=== PATIENT | male | born 1995 | race Caucasian/White ===

== ENCOUNTER 2020-03-18 15:31 | Emergency (ER) | payer OTHER ==
[2020-03-18] MEDS ORDERED: BENZONATATE 100 MG CAPSULE PO ONE ×2 (16:32→19:45)
--- NOTE | 2020-03-18 16:34 | ER Document Report ---
ED Medical Screen (RME) - General Chief Complaint: Flu Symptoms Stated Complaint: CEST PAIN Time Seen by Provider: 03/18/20 16:26 Notes: Patient is a 24-year-old male who presents emergency department with a chief complaint of chest pain that started about 2 to 3 hours ago. Patient also has had some nausea, vomiting, and abdominal pain. Patient states that he has had a cough and every time he coughs, the chest pain is exacerbated. Patient vapes. Exam: Coarse lung sounds in bilateral lower lobes. I have greeted and performed a rapid initial assessment of this patient. A comprehensive ED assessment and evaluation of the patient, analysis of test results and completion of medical decision making process will be conducted by an additional ED providers. - Related Data Home Medications: lisinopril 25mg Physical Exam - Vital signs Vitals: Temp Pulse Resp BP Pulse Ox 99.5 F 105 H 20 157/92 H 99 03/18/20 15:54 03/18/20 15:54 03/18/20 15:54 03/18/20 15:54 03/18/20 15:54 Course - Vital Signs Vital signs: Temp Pulse Resp BP Pulse Ox 99.5 F 105 H 20 157/92 H 99 03/18/20 15:54 03/18/20 15:54 03/18/20 15:54 03/18/20 15:54 03/18/20 15:54
--- NOTE | 2020-03-18 17:00 | RADIOLOGY REPORT (SQ) ---
EXAM DESCRIPTION: CHEST SINGLE VIEW IMAGES COMPLETED DATE/TIME: 03/18/2020 4:49 pm REASON FOR STUDY: cough; chest pain COMPARISON: None. EXAM PARAMETERS: NUMBER OF VIEWS: One view. TECHNIQUE: An AP view of the chest was obtained. RADIATION DOSE: NA LIMITATIONS: None. FINDINGS: LUNGS AND PLEURA: Patchy bilateral basilar predominant parenchymal opacities. There is no sizable pleural effusion or pneumothorax. MEDIASTINUM AND HILAR STRUCTURES: No mediastinal or hilar contour abnormality. HEART AND VASCULAR STRUCTURES: The cardiac silhouette and pulmonary vasculature are within normal west its. BONES: No acute findings. HARDWARE: None in the chest. OTHER: No other finding. IMPRESSION: Patchy bilateral basilar predominant parenchymal opacities. Clinical correlation to exc lude a pneumonia is recommended. TECHNICAL DOCUMENTATION: JOB ID: [id number] [employer]- All Rights Reserved Reading location - IP/workstation name: [email or web address]
--- NOTE | 2020-03-18 19:12 | EKG REPORT ---
SEVERITY:- BORDERLINE ECG - SINUS RHYTHM PROBABLE LEFT ATRIAL ABNORMALITY : Confirmed by: Na Awan MD 18-Mar-2020 19:12:03
--- NOTE | 2020-03-18 19:39 | ER Document Report ---
ED Flu Like - General Chief Complaint: Flu Symptoms Stated Complaint: CEST PAIN Time Seen by Provider: 03/18/20 16:26 Primary Care Provider: KEANU,MARIBEL [Primary Care Provider] - Follow up as needed Mode of Arrival: Ambulatory Information source: Patient Notes: 03/18/20 16:26 - ED Nursing Note by JULI MEJIA Acct Num: [id number] : 1995 Patient Age: 24 Patient presents to the ED from home with complaint of chest pain, difficulty breathing, fever, chills, night sweats, nausea, and vomiting and cough. Patient states his symptoms started Wednesday evening. Patient states his highest measured temperature was 99.8. Patient states he had been taking tylenol and his last dose was at noon today. Patient is alert and orientedx4, speaking in clear and complete sentences, respirations are even and unlabored, NAD noted at this time. ED Medical Screen (Place Notes) - General Chief Complaint: Flu Symptoms Stated Complaint: CEST PAIN Time Seen by Provider: 03/18/20 16:26 Notes: Patient is a 24-year-old male who presents emergency department with a chief complaint of chest pain that started about 2 to 3 hours ago. Patient also has had some nausea, vomiting, and abdominal pain. Patient states that he has had a cough and every time he coughs, the chest pain is exacerbated. Patient vapes. Exam: Coarse lung sounds in bilateral lower lobes. MY NOTES 24-year-old male arrives by POV after having upper respiratory tract symptoms since early Wednesday over 3 days ago. Wednesday and Wednesday he experienced myalgias and fever and chills and nonproductive cough. Patient is positive for hypertension taking lisinopril JAC inhibitor as well as testosterone replacement 4 mg in each thigh monthly. He takes this for low testosterone levels. He also takes Effexor and oxycodone 10 mg 5 times a day for myalgias. He was discharged from the in 2018 because he got surgery for his gynecomastia which became abscessed and became complication because of nerve involvement of his right upper extremities. 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 He also gets keloids over his body including the surgeries to his breasts chest. Patient does not know where he got his URI symptoms from. 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 - HPI Onset: Other - x 3 days Timing/Duration: Sudden, Worse Quality of pain: Achy Severity: Severe Pain Level: 4 CO exposure: No Associated symptoms: Body/muscle aches, Productive cough, Fever, Hurts to breath Similar symptoms previously: No Recently seen / treated by doctor: No - Related Data Home Medications: lisinopril 25mg Past Medical History - General Information source: Patient - Social History Smoking Status: Current Every Day Smoker Cigarette use (# per day): Yes Chew tobacco use (# tins/day): No Smoking Education Provided: Yes Frequency of alcohol use: Heavy - Used to be a heavy drinker but then was told this would cause him to have liver issues. He continues to use steroids testosterone type and also oxycodone's. Drug Abuse: Prescription drugs Lives with: Family Family History: Reviewed & Not Pertinent Patient has suicidal ideation: No Patient has homicidal ideation: No Physical Exam - Vital signs Vitals: Temp Pulse Resp BP Pulse Ox 99.5 F 105 H 20 157/92 H 99 03/18/20 15:54 03/18/20 15:54 03/18/20 15:54 03/18/20 15:54 03/18/20 15:54 Interpretation: Hypertensive, Tachycardic, Febrile - General General appearance: Appears well, Alert - HEENT Head: Normocephalic, Atraumatic Eyes: Normal Pupils: PERRL Sinus: Normal Nasal: Normal Mouth/Lips: Normal Mucous membranes: Normal Pharynx: Normal Neck: Normal - Respiratory Respiratory status: No respiratory distress Chest status: Pain with deep breathing, Other - Keloid scars across both sides of his breast where he had gynecomastia surgical repair this patient is a Caucas carmencita male Breath sounds: Productive cough Chest palpation: Normal - Cardiovascular Rhythm: Tachycardia Heart sounds: Normal auscultation Murmur: No - Abdominal Inspection: Normal Distension: No distension Bowel sounds: Normal Tenderness: Nontender Organomegaly: No organomegaly - Rectal Prostate: Other - Deferred - Genitourinary Scrotum: Other - Deferred - Back Back: Normal - Extremities General upper extremity: Normal inspection, Nontender, Normal color, Normal ROM, Normal temperature General lower extremity: Normal inspection, Nontender, Normal color, Normal ROM, Normal temperature, Normal weight bearing. No: Neha's sign - Neurological Neuro grossly intact: Yes Cognition: Normal Orientation: AAOx4 Cassidy Coma Scale Eye Opening: Spontaneous Sanborn Coma Scale Verbal: Oriented Sanborn Coma Scale Motor: Obeys Commands Cassidy Coma Scale Total: 15 Speech: Normal Motor strength normal: LUE, RUE, LLE, RLE Sensory: Normal - Psychological Associated symptoms: Normal affect, Normal mood - Skin Skin Temperature: Warm Skin Moisture: Dry Skin Color: Normal, Other - Multiple tattoos but noninflamed Course - Vital Signs Vital signs: Temp Pulse Resp BP Pulse Ox 99.4 F 95 18 138/87 H 100 03/18/20 19:59 03/18/20 19:59 03/18/20 19:59 03/18/20 19:59 03/18/20 19:59 - Laboratory Results Result Diagrams: 03/18/20 19:45 03/18/20 19:45 Laboratory Results Interpreted: 03/18/20 19:45 Sodium 136.0 L ALT 53 H Critical Laboratory Results Reviewed: No Critical Results - Radiology Results Radiology Results Interpreted: 03/18/20 21:02 Dr. Snell Critical Radiology Results Reviewed: Yes Attending or Supervising Physician who Reviewed Radiology: LISA DAILEY JR Discharge - Discharge Clinical Impression: Bilateral pulmonary infiltrates on chest x-ray, COVID-19 virus RNA test result unknown, Bronchitis Condition: Stable Disposition: HOME, SELF-CARE Instructions: COVID-19 Guidance for Persons Under Investigation Additional Instructions: Follow-up with personal doctor this week call office; try to stay quarantined until your coronavirus test returns. Take medications as directed. Encourage fluids like chamomile tea. Avoid immunocompromised and transplant patients and elderly patients. Prescriptions: Dexamethasone [Decadron 4 Mg Tablet] 4 mg PO DAILY #5 tablet Famotidine [Pepcid 20 mg Tablet] 20 mg PO DAILY #12 tablet Benzonatate [Tessalon Perles 100 mg Capsule] 100 mg PO BID #20 capsule Azithromycin [Zithromax 250 mg Tablet] 250 mg PO ASDIR PRN #6 tablet PRN Reason: Forms: Return to Work Referrals: [facility] [Primary Care Provider] - Follow up as needed
[2020-03-18 20:00] VITALS: BP 138/87
[2020-03-18] MEDS ORDERED: AZITHROMYCIN 250 MG TABLET PO ONE (20:11)
[2020-03-18] MEDS ORDERED: FAMOTIDINE 20 MG TABLET PO ONE (20:11)
[2020-03-18] MEDS ORDERED: DEXAMETHASONE SOD PHOSPHATE INJ 4 MG/1 ML VIAL IV ONE (20:11)
[2020-03-18 20:20] LABS: ABSOLUTE LYMPHOCYTES (AUTO) 1.3 10^3/uL (0.5-4.7); ABSOLUTE MONOCYTES (AUTO) 0.8 10^3/uL (0.1-1.4); ABSOLUTE NEUT (AUTO) 4.1 10^3/uL (1.7-8.2); BASOPHILS % (AUTO) 0.5 % (0-2); EOSINOPHILS % (AUTO) 0.1 % (0-6); HEMATOCRIT 39.3 % (37.9-51.0); HEMOGLOBIN 13.6 g/dL (13.5-17.0); LYMPHOCYTES % (AUTO) 20.5 % (13-45); MEAN CORPUSCULAR HGB CONC 34.5 g/dL (32.0-36.0); MEAN CORPUSCULAR VOLUME 87 fl (80-97); MONOCYTES % (AUTO) 12.3 % (3-13); PLATELET COUNT 173 10^3/uL (150-450); RED BLOOD COUNT 4.52 10^6/uL (4.35-5.55); RED CELL DISTRIBUTION WIDTH 12.1 % (11.5-14.0); SEGMENTED NEUTROPHILS % (AUTO) 66.6 % (42-78); TOTAL CELLS COUNTED % (AUTO) 100 %; WHITE BLOOD COUNT 6.2 10^3/uL (4.0-10.5)
[2020-03-18 20:38] LABS: ALBUMIN 4.4 g/dL (3.5-5.0); ALKALINE PHOSPHATASE 94 U/L (38-126); ANION GAP 10 (5-19); ASPARTATE AMINO TRANSFERASE 36 U/L (17-59); BILIRUBIN,DIRECT 0.1 mg/dL (0.0-0.4); BILIRUBIN,TOTAL 0.4 mg/dL (0.2-1.3); BLOOD UREA NITROGEN 12 mg/dL (7-20); CARBON DIOXIDE 28 mmol/L (22-30); CHLORIDE 98 mmol/L (98-107); CREATINE KINASE 127 U/L (55-170); GLUCOSE 99 mg/dL (75-110); POTASSIUM 4.1 mmol/L (3.6-5.0); TOTAL PROTEIN 7.5 g/dL (6.3-8.2)
[2020-03-18 22:59] LABS: A TYPE INFLUENZA AG NEGATIVE (NEGATIVE); B INFLUENZA AG NEGATIVE (NEGATIVE)
== END 2020-03-18 20:40 | disposition home or self-care (01) ==
LOC: ER 15:31
DX: U07.1 COVID-19 (principal); R91.8 Other nonspecific abnormal finding of lung field; J40 Bronchitis, not specified as acute or chronic; R07.9 Chest pain, unspecified; R06.00 Dyspnea, unspecified; R50.9 Fever, unspecified; R11.2 Nausea with vomiting, unspecified; M79.10 Myalgia, unspecified site
CPT/HCPCS: 93005; 99285; 96374; 36415; 82550; 83690; 83735; 85025; 87635; 80053; 84484; 87804; 71045; 93010; J1100; C9803